=== PATIENT | female | born 1980 | race Caucasian/White ===

== ENCOUNTER 2022-05-06 17:25 | Emergency (ER) | payer BC, OTHER ==
[2022-05-06] MEDS ORDERED: Sodium Chloride 0.9% 10 ML Syringe FLUSH PRN (17:51)
[2022-05-06] MEDS ORDERED: Sodium Chloride 0.9% 1,000 ML IV SCH (18:00)
[2022-05-06 18:51] LABS: ACETAMINOPHEN 0 ug/mL (10-30); ESTIMATED GFR 83 mL/min (>60)
[2022-05-06] MEDS ORDERED: Dextrose 5%-Lactated Ringers 1,000 ML IV SCH (19:45)
[2022-05-07] MEDS ORDERED: Enoxaparin 40 MG/0.4 ML Syringe SUBCUT SCH (09:00)
== END 2022-05-06 19:50 ==
LOC: JD.ED 17:25
DX: T42.6X1A Poisoning by other antiepileptic and sedative-hypnotic drugs, accidental (unintentional), initial encounter (principal); T50.7X1A Poisoning by analeptics and opioid receptor antagonists, accidental (unintentional), initial encounter; T38.1X1A Poisoning by thyroid hormones and substitutes, accidental (unintentional), initial encounter; Z79.899 Other long term (current) drug therapy
CPT/HCPCS: 36415; 80053; 80143; 80179; 80307; 84443; 84703; 85025; 93005; 96360; 96361; 99284; J3490; J7030; 93010; 99283

== ENCOUNTER 2022-10-15 10:25 | Emergency (ER) | payer OTHER | END 2022-10-15 11:13 | disposition left against medical advice (07) | LOC: JD.ED 10:25 | DX: Z53.21 Procedure and treatment not carried out due to patient leaving prior to being seen by health care provider (principal) ==

== ENCOUNTER 2022-10-15 11:48 | Emergency (ER) | payer OTHER ==
[2022-10-15] MEDS ORDERED: LORazepam 1 MG Tab PO ONE (12:46)
[2022-10-15] MEDS ORDERED: hydrOXYzine HCl 25 MG Tab PO ONE (13:53)
== END 2022-10-15 16:39 | disposition left against medical advice (07) ==
LOC: JD.ED 11:48
DX: F15.10 Other stimulant abuse, uncomplicated (principal); E03.9 Hypothyroidism, unspecified; F17.210 Nicotine dependence, cigarettes, uncomplicated; Z79.899 Other long term (current) drug therapy
CPT/HCPCS: 36415; 80053; 80306; 80307; 81001; 81025; 83735; 84443; 85025; 87086; 99284; A9270

== ENCOUNTER 2022-11-18 10:39 | Emergency (ER) | payer OTHER ==
[2022-11-18] MEDS ORDERED: Sodium Chloride 0.9% 10 ML Syringe FLUSH PRN (10:49)
[2022-11-18] MEDS ORDERED: Sodium Chloride 0.9% 1,000 ML IV SCH (11:00)
[2022-11-18 11:53] LABS: ACETAMINOPHEN 14 ug/mL (10-30); ESTIMATED GFR 49 mL/min (>60)
[2022-11-18 16:52] LABS: CORONAVIRUS COVID-19 NAA NEGATIVE (NEGATIVE)
[2022-11-19] MEDS ORDERED: Sodium Chloride 0.9% 1,000 ML IV SCH (02:45)
[2022-11-19] MEDS ORDERED: Ibuprofen 600 MG Tab PO ONE (04:14)
[2022-11-19] MEDS ORDERED: cloNIDine 0.1 MG Tab PO ONE (15:19)
== END 2022-11-19 16:00 | disposition home or self-care (01) ==
LOC: JD.ED 10:39
DX: T50.902A Poisoning by unspecified drugs, medicaments and biological substances, intentional self-harm, initial encounter (principal); Z76.5 Malingerer [conscious simulation]; F19.20 Other psychoactive substance dependence, uncomplicated; E03.9 Hypothyroidism, unspecified; Z79.899 Other long term (current) drug therapy; Z20.822 Contact with and (suspected) exposure to COVID-19
CPT/HCPCS: 0241U; 36415; 51701; 80053; 80143; 80179; 80306; 80307; 84443; 84703; 85025; 93005; 94762; 96360; 96361; 99284; A9270; J3490; J7030